=== PATIENT | female | born 1990 | race American Indian/Alaskan Native ===

== ENCOUNTER 2018-12-02 14:09 | Inpatient (IN) | payer BC ==
[~2018-12-02] VITALS: Ht 170.2 cm; Wt 91.1 kg
[2018-12-02 14:45] LABS: BASOPHILS ABSOLUTE AUTO 0.01 K/mm3 (0.00-0.23); BASOPHILS PERCENT AUTO 0 % (0-2); EOSINOPHILS ABSOLUTE AUTO 0.02 K/mm3 (0.00-0.68); EOSINOPHILS PERCENT AUTO 0 % (0-6); Hematocrit 37.9 % (33.0-51.0); Hemoglobin 12.9 g/dL (11.5-16.0); IMMATURE GRAN ABSOLUTE AUTO 0.02 K/mm3 (0.00-0.10); IMMATURE GRAN PERCENT AUTO 0 % (0-1); LYMPHOCYTES ABSOLUTE AUTO 0.41 K/mm3 (0.84-5.20); LYMPHOCYTES PERCENT AUTO 7 % (21-46); MONOCYTES ABSOLUTE AUTO 0.23 K/mm3 (0.16-1.47); MONOCYTES PERCENT AUTO 4 % (4-13); Mean Corpuscular HGB 28.9 pg (26.0-34.0); Mean Corpuscular Volume 85 fL (80-100); Mean Platelet Volume 10.2 fL (9.1-12.4); NEUTROPHILS ABSOLUTE AUTO 5.35 K/mm3 (1.96-9.15); NEUTROPHILS PERCENT AUTO 89 % (41-73); Platelet Count 165 K/mm3 (150-400); RDW Coefficient Variation 13.5 % (11.7-14.2); RDW Standard Deviation 42.1 fL (35.1-46.3); Red Blood Cell Count 4.46 M/mm3 (3.80-5.20); White Blood Cell Count 6.04 K/mm3 (4.00-11.30)
[2018-12-02 15:01] LABS: Source, Urine Clean Catch
[2018-12-02 15:06] LABS: Alanine Aminotransfer (ALT/SGP 21 U/L (12-78); Albumin, Blood 3.5 g/dL (3.4-5.0); Alk Phos 80 U/L (50-136); Anion Gap 11 mmol/L (6-16); Aspartate Aminotrans (AST/SGOT 14 U/L (12-37); Bilirubin, Total 1.4 mg/dL (0.1-1.0); Blood Urea Nitrogen 9 mg/dL (8-24); Bun/Creatinine Ratio 17.2 (12.0-20.0); CO2, Blood 19 mmol/L (21-32); Calcium, Blood 8.7 mg/dL (8.5-10.1); Chloride, Blood 107 mmol/L (98-108); Creatinine, Blood 0.52 mg/dL (0.40-1.00); Globulin, Blood 3.6 g/dL (2.2-4.0); Glomerular Filtration Rate >60 (60-); Glucose, Blood 209 mg/dL (70-99); Potassium, Blood 3.4 mmol/L (3.5-5.5); Sodium, Blood 137 mmol/L (136-145); Total Protein, Blood 7.1 g/dL (6.4-8.2)
[2018-12-02 15:09] LABS: Bilirubin, Urine Neg (Neg); Blood, Urine 4+ (Neg); Glucose Qualitative, Urine 3+ (Neg); Ketones, Urine 2+ (Neg); Leukocyte Esterase, Urine 3+ (Neg); Nitrite, Urine Pos (Neg); Protein, Urine 2+ (Neg); Urobilinogen, Urine NORM (Normal)
[2018-12-02] MEDS ORDERED: Metformin HCl1000 MG PO (15:21)
[2018-12-02] MEDS ORDERED: ARIPIPRAZOLE5 MG PO (15:21)
[2018-12-02 15:25] LABS: Appearance, Urine Hazy (Clear); Color, Urine Yellow (P-Yellow)
[2018-12-02] MEDS ORDERED: DESV50 PO (15:25)
[2018-12-02 15:35] LABS: White Blood Cells, Urine TNTC /hpf (0-5)
[2018-12-02 15:36] LABS: Bacteria Many /hpf
[2018-12-02 15:37] LABS: Squamous Epithelial Cells Mod /hpf (Few)
[2018-12-02 15:56] LABS: U Amphetamine Screen Not Detected; U Barbituate Screen Not Detected; U Benzodiazapine Screen Not Detected; U Buprenorphine Screen Not Detected; U Cannabinoids Screen DETECTED; U Cocaine Screen Not Detected; U Methadone Screen Not Detected; U Methamphetamine Screen Not Detected; U Opiates Screen Not Detected; U Oxycodone Screen Not Detected; U Phencyclidine Screen Not Detected; U Propoxyphene Screen Not Detected
[2018-12-03 04:30] LABS: Hematocrit 31.6 % (33.0-51.0); Hemoglobin 10.4 g/dL (11.5-16.0); Mean Corpuscular HGB 28.4 pg (26.0-34.0); Mean Corpuscular HGB Conc 32.9 g/dL (31.5-36.5); Mean Corpuscular Volume 86 fL (80-100); Mean Platelet Volume 10.6 fL (9.1-12.4); Platelet Count 133 K/mm3 (150-400); RDW Coefficient Variation 13.6 % (11.7-14.2); Red Blood Cell Count 3.66 M/mm3 (3.80-5.20); White Blood Cell Count 8.88 K/mm3 (4.00-11.30)
[2018-12-03 04:47] LABS: Alanine Aminotransfer (ALT/SGP 16 U/L (12-78); Albumin, Blood 2.7 g/dL (3.4-5.0); Albumin/Globulin Ratio 0.9 (0.8-1.8); Alk Phos 65 U/L (50-136); Anion Gap 6 mmol/L (6-16); Aspartate Aminotrans (AST/SGOT 14 U/L (12-37); Blood Urea Nitrogen 6 mg/dL (8-24); Bun/Creatinine Ratio 12.7 (12.0-20.0); CO2, Blood 23 mmol/L (21-32); Chloride, Blood 111 mmol/L (98-108); Creatinine, Blood 0.47 mg/dL (0.40-1.00); Globulin, Blood 3.1 g/dL (2.2-4.0); Glomerular Filtration Rate >60 (60-); Glucose, Blood 252 mg/dL (70-99); Potassium, Blood 3.9 mmol/L (3.5-5.5); Sodium, Blood 140 mmol/L (136-145); Total Protein, Blood 5.8 g/dL (6.4-8.2)
--- NOTE | 2018-12-03 04:53 | NUR ---
SHIFT SUMMARY: PT A&O X4. VS WNL T/O SHIFT. PT C/O HEADACHE. NOT IMPROVED WITH TLYENOL. GIVEN 1 NORCO TAB. INDEPENDENT IN ROOM. VOIDING WELL. URINE YELLOW AND CLOUDY IN APPEARANCE. PT DENIES ANY URINARY SYMPTOMS. ASHELY PO. DENIES N/V. FLUIDS INFUSING PER EMAR. LACTIC ACID DECREASED TO 1.0 THIS MORNING.
[2018-12-03 05:36] LABS: BAND PERCENT MAN 17 % (0-8); BASOPHILS PERCENT MAN 0 % (0-2); EOSINOPHILS ABSOLUTE MAN 0.17 K/mm3 (0.00-0.68); EOSINOPHILS PERCENT MAN 2 % (0-6); LYMPHOCYTES ABSOLUTE MAN 1.06 K/mm3 (0.84-5.20); LYMPHOCYTES PERCENT MAN 12 % (21-46); MONOCYTES ABSOLUTE MAN 0.53 K/mm3 (0.16-1.47); MONOCYTES PERCENT MAN 6 % (4-13); SEG NEUTROPHILS PERCENT MAN 63 % (41-73); TOTAL CELLS COUNTED 100
--- NOTE | 2018-12-03 12:19 | NUR ---
Patient having increasing nausea and vomitting, she has had three episodes of vomitting, not a lot of change/help from zofran. Will give additional dose now. Pt also has c/o headache, unresolved by tylenol, offered norco per emar, however pt is so nauseous she does not feel she can keep a pill down. Called Dr. Davis, will await orders.
--- NOTE | 2018-12-03 12:39 | NUR ---
SPOKE WITH DR. PAYNE, SHE STATED THAT SHE WILL PLACE A COUPLE OF ONE TIME DOSES ON THE EMAR, WILL ADMINISTER AND CHANGED DIET TO CLEAR LIQUID PER DR. ORDER. WILL CONTINUE TO MONITOR AND UPDATE DR WITH ANY CHANGES.
--- NOTE | 2018-12-03 15:11 | NUR ---
PT ARRIVED TO UNIT FROM PCU RATES [place]UST[place] PAIN AT 10/03. DENIES N/V AT THIS TIME. UP TO RESTROOM AT THIS TIME. INDEPENDENT IN ROOM.
--- NOTE | 2018-12-03 19:26 | NUR ---
SUMMARY PT TRANSFERRED FROM PCU THIS SHIFT. INDEPENDENT IN ROOM. PT HAD EPISODE OF EMESIS. ALSO C/O OF SEVERED [place]UST[place]. MEDICATED PER ORDERS FOR [place]UST[place] PAIN. PT HAD TEMP OF 100.1 BEFORE GAVE TYLENOL AT 1635. CHECKED PT AFTER TYLENOL AND TEMP HAD RISEN TO 102.5. PLACED COOL COMPRESS TO HEAD AND REPORTED TO DR PAYNE. TEMP NOW 100.8. CALL LIGHT IN REACH. PT RESTING W/LIGHT OFF.
--- NOTE | 2018-12-03 19:37 | NUR ---
REPORT GIVEN TO ONCOMING SHIFT.
[2018-12-04 04:19] LABS: Hematocrit 30.4 % (33.0-51.0); Hemoglobin 9.9 g/dL (11.5-16.0); Mean Corpuscular HGB 27.7 pg (26.0-34.0); Mean Corpuscular HGB Conc 32.6 g/dL (31.5-36.5); Mean Corpuscular Volume 85 fL (80-100); Mean Platelet Volume 10.9 fL (9.1-12.4); Platelet Count 118 K/mm3 (150-400); RDW Coefficient Variation 13.8 % (11.7-14.2); RDW Standard Deviation 43.2 fL (35.1-46.3); Red Blood Cell Count 3.58 M/mm3 (3.80-5.20); White Blood Cell Count 6.27 K/mm3 (4.00-11.30)
[2018-12-04 04:38] LABS: Anion Gap 7 mmol/L (6-16); Blood Urea Nitrogen 4 mg/dL (8-24); CO2, Blood 21 mmol/L (21-32); Chloride, Blood 109 mmol/L (98-108); Glomerular Filtration Rate >60 (60-); Glucose, Blood 172 mg/dL (70-99); Potassium, Blood 3.8 mmol/L (3.5-5.5); Sodium, Blood 137 mmol/L (136-145)
[2018-12-04 05:46] LABS: BAND PERCENT MAN 17 % (0-8); BASOPHILS PERCENT MAN 0 % (0-2); EOSINOPHILS PERCENT MAN 0 % (0-6); LYMPHOCYTES ABSOLUTE MAN 0.56 K/mm3 (0.84-5.20); LYMPHOCYTES PERCENT MAN 9 % (21-46); METAMYELOCYTE ABSOLUTE MAN 0.06 K/mm3 (0.00-0.00); METAMYELOCYTE PERCENT MAN 1 % (0-0); MONOCYTES ABSOLUTE MAN 0.12 K/mm3 (0.16-1.47); MONOCYTES PERCENT MAN 2 % (4-13); NEUTROPHILS ABSOLUTE MAN 5.51 K/mm3 (1.96-9.15); SEG NEUTROPHILS PERCENT MAN 71 % (41-73); TOTAL CELLS COUNTED 100
--- NOTE | 2018-12-04 07:32 | NUR ---
SUMMARY PT WITH TEMP MAX 99.7 THIS SHIFT.DENIES PAIN OR BURNING WITH URINATION. PT REPORTS FELT SL DIZZY WITH DILAUDID SO OPTED NOT TO HAVE ME TREAT HEADACHE WITH DILAUDID.I GAVE PT TEPID WARM COMPRESS TO FOREHEAD WHICH SHE REPORTED WAS ONLY THING THAT SEEMED TO HELP. PT VERB SHE ALSO FEELS NOSE IS SL RUNNING. SHE BELIEVES MAYBE ALLERGIES ARE CAUSING HEADACHES.I REPORTED TO DAY RN AND PT REQUESTING SOOMETHING TO DECONGEST.POSSIBLY MUCINEX TO THIN SECRETIONS AND OR POSSIBLY NASAL SPRAY. DAY RN AGREES TO FOLLOW UP ON THIS.
--- NOTE | 2018-12-04 10:53 | NUR ---
pt voided 100 ml pvr 5ml will go over discharge paperwork ok to go home
--- NOTE | 2018-12-04 17:36 | NUR ---
SUMMARY NO ACUTE CHANGES T/O SHIFT. PT HAD [place] T/O DAY. MEDICATED PER ORDERS FOR AUST[place] PAIN. OBTAINED NEW ORDERS THIS EVENING FOR IBUPROFEN. PLAN TO ADMINISTER PER ORDERS AFTER PT HAS EATEN DINNER. ADVANCED TO FULL LIQUIDS. TELE DC'D PER ORDERS. PT INDEPENDENT IN ROOM. IV INFUSING W/O DIFFICULTY.
[2018-12-05 04:59] LABS: BASOPHILS ABSOLUTE AUTO 0.01 K/mm3 (0.00-0.23); BASOPHILS PERCENT AUTO 0 % (0-2); EOSINOPHILS ABSOLUTE AUTO 0.04 K/mm3 (0.00-0.68); EOSINOPHILS PERCENT AUTO 1 % (0-6); Hematocrit 30.8 % (33.0-51.0); IMMATURE GRAN ABSOLUTE AUTO 0.04 K/mm3 (0.00-0.10); IMMATURE GRAN PERCENT AUTO 1 % (0-1); LYMPHOCYTES ABSOLUTE AUTO 0.89 K/mm3 (0.84-5.20); LYMPHOCYTES PERCENT AUTO 20 % (21-46); MONOCYTES ABSOLUTE AUTO 0.47 K/mm3 (0.16-1.47); MONOCYTES PERCENT AUTO 10 % (4-13); Mean Corpuscular HGB 27.6 pg (26.0-34.0); Mean Corpuscular HGB Conc 32.5 g/dL (31.5-36.5); Mean Corpuscular Volume 85 fL (80-100); Mean Platelet Volume 10.6 fL (9.1-12.4); NEUTROPHILS ABSOLUTE AUTO 3.11 K/mm3 (1.96-9.15); NEUTROPHILS PERCENT AUTO 68 % (41-73); Platelet Count 127 K/mm3 (150-400); RDW Coefficient Variation 13.9 % (11.7-14.2); RDW Standard Deviation 43.8 fL (35.1-46.3); Red Blood Cell Count 3.62 M/mm3 (3.80-5.20); White Blood Cell Count 4.56 K/mm3 (4.00-11.30)
--- NOTE | 2018-12-05 06:10 | NUR ---
SHIFT SUMMARY PT BEING TREATED FOR PYELONEPHRITIS, AWAITING POSSIBLE DISCHARGE TODAY. VSS, MAINTAINED O2 SATS >90% ON RA. PT C/O NAUSEA OCCASIONALLY THIS SHIFT, C/O PAIN R/T HEADACHE X3 DAYS. PT REP PAIN IS TOLERABLE WHEN MANAGED WITH PO MEDICATIONS. PT IS TOLERATING SMALL AMOUNTS OF FULL LIQUID DIET. PT IS INDEPENDENT IN ROOM, ALERT AND ORIENTED. WILL CONTINUE TO MONITOR.
[2018-12-05] MEDS ORDERED: CEFU500T30 PO (10:19)
[2018-12-05] MEDS ORDERED: IBU600 MG PO (10:20)
--- NOTE | 2018-12-05 10:45 | NUR ---
DISCHARGE: PT DC TO HOME AT THIS TIME WITH SPOUSE. VERBAL UNDERSTANDING OF MEDICATIONS, FOLLOW UP, INSTRUCTIONS AND PROBLEMS TO REPORT. IV DC'D WNL. MEDICATIONS FAXED TO PT PHARMACY. PT LEFT AMBULATORY TO CAR WITH BELONGINGS.
== END 2018-12-05 10:45 | disposition home or self-care (01) | DRG 872 ==
LOC: ER 14:09 → PCU 17:37 → SURS 18:05 → PCU 18:19 → SURS 12-03 15:10
PROVIDERS: Internal Medicine; Physician Assistant; ADMIT Internal Medicine Gastroenterology
DX: A41.51 Sepsis due to Escherichia coli [E. coli] (principal); N10 Acute pyelonephritis; F32.9 Major depressive disorder, single episode, unspecified; E11.9 Type 2 diabetes mellitus without complications; D69.6 Thrombocytopenia, unspecified; E66.9 Obesity, unspecified; D64.9 Anemia, unspecified; R51 Headache; R65.20 Severe sepsis without septic shock; Z79.899 Other long term (current) drug therapy; Z88.2 Allergy status to sulfonamides
CPT/HCPCS: 36415; 71046; 74022; 74176; 76705; 80048; 80053; 81001; 81025; 82947; 83605; 84145; 85025; 87040; 87077; 87086; 87186; 93005; 93010; 96361; 96365; 96375; 99285-25; A9270; A9270-GY; G0480; J0696; J1170; J1650; J2405; J2550; J3480; J7120

== ENCOUNTER → 2018-12-22 | Outpatient (CLI) | payer BC ==
[~2018-12-22] MED LIST: ARIPIPRAZOLE5 MG PO; CEFU500T30 PO; DESV50 PO; IBU600 MG PO; Metformin HCl1000 MG PO
== END ==
LOC: LAB SHORT 12:44 → LAB 12:44
PROVIDERS: Physician Assistant
DX: R68.89 Other general symptoms and signs (principal)
CPT/HCPCS: 81050; 82530

== ENCOUNTER → 2019-01-17 | Outpatient (CLI) | payer BC | END | disposition home or self-care (01) | LOC: LAB SHORT 18:41 → LAB EV 18:41 | DX: N39.0 Urinary tract infection, site not specified (principal) | CPT/HCPCS: 87077; 87086; 87186 ==

== ENCOUNTER → 2020-02-10 | Outpatient (CLI) | payer BC ==
[~2020-02-10] MED LIST changes: +ASPI81CH PO; +INSDET100; +NOVOLOG100 UNIT/3 SQ; +PRENATAL TABLE1 EAC2 PO
== END | disposition home or self-care (01) ==
LOC: PLD 15:15 → LAB SHORT 15:15
DX: O24.113 Pre-existing type 2 diabetes mellitus, in pregnancy, third trimester (principal); O09.93 Supervision of high risk pregnancy, unspecified, third trimester
CPT/HCPCS: 87081; 87653

== ENCOUNTER 2022-01-12 06:33 | Emergency (ER) | payer BC ==
[~2022-01-12] VITALS: Ht 165.1 cm; Wt 104.3 kg
[2022-01-12 07:01] LABS: BASOPHILS ABSOLUTE AUTO 0.04 K/mm3 (0.00-0.23); BASOPHILS PERCENT AUTO 0 % (0-2); EOSINOPHILS ABSOLUTE AUTO 0.05 K/mm3 (0.00-0.68); EOSINOPHILS PERCENT AUTO 0 % (0-6); Hematocrit 49.8 % (33.0-51.0); IMMATURE GRAN ABSOLUTE AUTO 0.09 K/mm3 (0.00-0.10); IMMATURE GRAN PERCENT AUTO 1 % (0-1); LYMPHOCYTES ABSOLUTE AUTO 1.94 K/mm3 (0.84-5.20); LYMPHOCYTES PERCENT AUTO 13 % (21-46); MONOCYTES ABSOLUTE AUTO 0.87 K/mm3 (0.16-1.47); MONOCYTES PERCENT AUTO 6 % (4-13); Mean Corpuscular HGB 27.6 pg (26.0-34.0); Mean Corpuscular HGB Conc 34.1 g/dL (31.5-36.5); Mean Corpuscular Volume 81 fL (80-100); Mean Platelet Volume 10.1 fL (9.1-12.4); NEUTROPHILS ABSOLUTE AUTO 12.07 K/mm3 (1.96-9.15); NEUTROPHILS PERCENT AUTO 80 % (41-73); Platelet Count 267 K/mm3 (150-400); RDW Coefficient Variation 12.8 % (11.7-14.2); RDW Standard Deviation 37.2 fL (35.1-46.3); Red Blood Cell Count 6.15 M/mm3 (3.80-5.20); White Blood Cell Count 15.06 K/mm3 (4.00-11.30)
[2022-01-12 07:18] LABS: Albumin, Blood 3.9 g/dL (3.4-5.0); Albumin/Globulin Ratio 1.1 (0.8-1.8); Bilirubin, Total 1.9 mg/dL (0.1-1.0); Bun/Creatinine Ratio 23.8 (12.0-20.0); Calcium, Blood 9.1 mg/dL (8.5-10.1); Creatinine, Blood 0.42 mg/dL (0.40-1.00); Globulin, Blood 3.5 g/dL (2.2-4.0); Total Protein, Blood 7.4 g/dL (6.4-8.2)
[2022-01-12 07:24] LABS: Source, Urine Clean Catch
[2022-01-12 07:30] LABS: Appearance, Urine Clear (Clear); Bilirubin, Urine Neg (Neg); Blood, Urine Neg (Neg); Color, Urine Yellow (P-Yellow); Glucose Qualitative, Urine 4+ (Neg); Ketones, Urine 4+ (Neg); Leukocyte Esterase, Urine 2+ (Neg); Nitrite, Urine Neg (Neg); Protein, Urine 1+ (Neg); Specific Gravity, Urine 1.015 (1.003-1.022); Urobilinogen, Urine NORM (Normal)
[2022-01-12 07:38] LABS: Base Excess Venous -2.4 mmol/L; Bicarbonate Venous 22.1 mmol/L (24.0-30.0); PCO2 Venous 38.3 mmHg (38-42); pH Blood Venous 7.38 (7.34-7.37)
[2022-01-12 08:02] LABS: Bacteria Rare /hpf; Red Blood Cells, Urine 0-2 /hpf (0-2); Squamous Epithelial Cells Few /hpf (Few); Yeast/Fungi Urine Few /hpf
[2022-01-12 08:36] LABS: Influenza A, PCR NEGATIVE (NEGATIVE); Influenza B, PCR NEGATIVE (NEGATIVE); Resp Syncytial Virus, PCR NEGATIVE (NEGATIVE); SARS-Cov-2 (COVID-19) PCR, MMC NEGATIVE (NEGATIVE)
[2022-01-12] MEDS ORDERED: ONDA4ODT MM (09:27)
== END 2022-01-12 09:38 | disposition home or self-care (01) ==
LOC: ER 06:33
PROVIDERS: Emergency Medicine
DX: E11.65 Type 2 diabetes mellitus with hyperglycemia (principal); E86.0 Dehydration; R11.2 Nausea with vomiting, unspecified; R51.9 Headache, unspecified; Z79.84 Long term (current) use of oral hypoglycemic drugs; Z79.82 Long term (current) use of aspirin; Z79.899 Other long term (current) drug therapy; Z88.2 Allergy status to sulfonamides; Z20.822 Contact with and (suspected) exposure to COVID-19
CPT/HCPCS: 0241U; 80053; 81001; 81025; 82803; 85025; J0780; J1200; J7030